=== PATIENT | male | born 1955 | race Caucasian/White ===

== ENCOUNTER → 2017-01-17 | Outpatient (CLI) | payer OTHER ==
[~2017-01-17] MED LIST: ASPI81TA21 PO; ATEN-173 PO; ATEN50TA PO; ATOR-22 PO; ATV2 PO; CALCTAB7 PO; CITA20TA9 PO; CLOP1TAB15 PO; LISI-461 PO; LORA-741 PO; LPT/40 PO; MULTTAB58 PO; OMEG10007 PO
[2017-01-17 12:30] LABS: CHOLESTEROL/HDL RATIO 3.3
== END | disposition home or self-care (01) ==
LOC: C.LABPBG 08:08
PROVIDERS: ATTEND Internal Medicine Cardiovascular Disease
DX: I25.10 Atherosclerotic heart disease of native coronary artery without angina pectoris (principal); I25.5 Ischemic cardiomyopathy; Z98.890 Other specified postprocedural states

== ENCOUNTER → 2017-02-15 | Outpatient (CLI) | payer OTHER ==
[2017-02-15 17:01] LABS: ALT/SGPT 52 U/L (12-78); AST/SGOT 29 U/L (15-37); BLOOD UREA NITROGEN 14 mg/dl (7-18); BUN/CREATININE RATIO 13.6 (10-20); CALCIUM 8.4 mg/dl (8.5-10.1); CARBON DIOXIDE 28 mmol/L (21-32); CHLORIDE 107 mmol/L (98-107); GLUCOSE 100 mg/dl (70-99); POTASSIUM 3.9 mmol/L (3.5-5.1); SODIUM 141 mmol/L (136-145)
[2017-02-15 17:04] LABS: ALB/GLOB RATIO 1.1 (0.9-2); ALKALINE PHOSPHATASE 76 U/L (45-117)
[2017-02-16 09:12] LABS: ESTIMATED AVERAGE GLUCOSE 126 mg/dl; HA1C FLAG Normal (Normal)
== END | disposition home or self-care (01) ==
LOC: C.LABPBG 12:01
PROVIDERS: ATTEND Neuromusculoskeletal Medicine & OMM
DX: I25.10 Atherosclerotic heart disease of native coronary artery without angina pectoris (principal)

== ENCOUNTER 2017-05-25 10:45 | Emergency (ER) | payer OTHER ==
[~2017-05-25] VITALS: Ht 175.3 cm; Wt 89.3 kg
[~2017-05-25 10:45] MED LIST changes: -ATEN-173 PO; -ATOR-22 PO; -CITA20TA9 PO; -LORA-741 PO
[2017-05-25 10:48] VITALS: TEMP 36.9; Ht 175.3 cm; Wt 89.3 kg
[2017-05-25 11:00] VITALS: O2SAT 98
[2017-05-25] MEDS ORDERED: ACETAMINOPHEN 500 MG TAB PO STA (11:09)
--- NOTE | 2017-05-25 11:22 | EMERGENCY ROOM VISIT NOTE ---
History Report prepared by Ivan: Irma Monte Under the Supervision of: Dr. Nikolas Delgado M.D. First contact with patient: 10:54 Chief Complaint: CHEST PAIN Stated Complaint: CHEST PAIN History of Present Illness The patient is a 61 year old white male with a past medical history of HLD, HTN , and CAD with PCI and BMS to LAD by Dr. Cho in 2011 who presents to the ED with a cc of intermittent right burning chest pain beginning at 7 am this morning. The patient is on Aspirin but is not on any blood thinners. Negative N /V, fevers, chills, cough, sweating, bad taste in black of throat, alleviating symptoms. He denies that symptoms are similar to when he had his heart attack. Pt notes that he fell yesterday but denies LOC from this fall. Source of History: patient Onset: 7 am this morning Position: chest Quality: burning Timing: intermittent Associated Symptoms: No fevers, No chills, No cough, No nausea, No vomiting Note: Pt denies sweating, bad taste in black of throat, or alleviating symptoms Review of Systems See HPI for pertinent positives and negatives. A total of ten systems were reviewed and were otherwise negative. Past Medical & Surgical Medical Problems: (1) CAD (coronary artery disease) (2) HLD (hyperlipidemia) (3) HTN (hypertension) Family History no pertinent family history stated. Social History Smoking Status: Former Smoker Alcohol Use: none Drug Use: none Marital Status: Current/Historical Medications Scheduled Aspirin Enteric Coated (Ecotrin Or Generic), 81 MG PO DAILY Atenolol (Tenormin), 25 MG PO DAILY Atorvastatin (Lipitor), 20 MG PO DAILY Citalopram Hydrobromide (Celexa), 20 MG PO DAILY Lisinopril (Zestril), 10 MG PO DAILY Multiple Vitamin (Multivitamin), 1 TABLET PO DAILY Scheduled PRN Lorazepam (Ativan), 0.5 MG PO BID PRN for Anxiety/Agitation Allergies Coded Allergies: No Known Allergies (Verified , 05/25/17) Physical Exam Vital Signs Date Time Temp Pulse Resp B/P (MAP) Pulse Ox O2 Delivery O2 Flow Rate FiO2 05/25/17 13:55 67 24 112/66 96 05/25/17 13:02 60 26 108/73 97 Room Air 05/25/17 12:00 59 21 114/69 96 Room Air 05/25/17 11:32 64 20 116/72 98 Room Air 05/25/17 11:02 78 05/25/17 11:00 98 Room Air 05/25/17 11:00 67 25 127/83 98 Room Air 05/25/17 11:00 98 Room Air 05/25/17 10:48 36.9 68 16 138/82 99 Room Air Physical Exam GENERAL: Awake, alert, well-appearing, NAD HENT: Normocephalic, atraumatic. EYES: Normal conjunctiva. Sclera non-icteric. NECK: Supple. No nuchal rigidity. FROM. RESPIRATORY: CTAB, no rhonchi, wheezing, crackles CARDIAC: RRR, no MRG ABDOMEN: Soft, NTND, BS+ MSK: No reproducible chest wall tenderness, no ecchymosis or crepitus, no reproducible chest wall pain with shoulder ROM, no LE edema, calor or erythema. NEURO: GCS 15, CN 2-12 intact, moves all 4s on command SKIN: No rash or jaundice noted. Medical Decision & Procedures ER Provider Diagnostic Interpretation: Radiology results as stated below per my review and radiologist interpretation: CHEST ONE VIEW PORTABLE FINDINGS: Cardiomediastinal and hilar silhouettes are within normal limits. No pneumothorax, pleural effusion or focal airspace consolidation. There is no overt pulmonary edema. The bones are grossly intact. IMPRESSION: No acute cardiopulmonary process. The above report was generated using voice recognition software. It may contain grammatical, syntax or spelling errors. Electronically signed by: George Umana M.D. Laboratory Results 05/25/17 11:15 Red Blood Count 4.68, Mean Corpuscular Volume 89.1, Mean Corpuscular Hemoglobin 30.3, Mean Corpuscular Hemoglobin Concent 34.1, Mean Platelet Volume 10.2, Neutrophils (%) (Auto) 58.7, Lymphocytes (%) (Auto) 29.8, Monocytes (%) (Auto) 8.7, Eosinophils (%) (Auto) 2.3, Basophils (%) (Auto) 0.3, Neutrophils # (Auto) 3.57, Lymphocytes # (Auto) 1.81, Monocytes # (Auto) 0.53, Eosinophils # (Auto) 0.14, Basophils # (Auto) 0.02 05/25/17 11:15 Test 05/25/17 11:15 05/25/17 13:06 White Blood Count 6.08 K/uL (4.8-10.8) Red Blood Count 4.68 M/uL (4.7-6.1) Hemoglobin 14.2 g/dL (14.0-18.0) Hematocrit 41.7 % (42-52) Mean Corpuscular Volume 89.1 fL (80-100) Mean Corpuscular Hemoglobin 30.3 pg (25-34) Mean Corpuscular Hemoglobin Concent 34.1 g/dl (32-36) Platelet Count 211 K/uL (130-400) Mean Platelet Volume 10.2 fL (7.4-10.4) Neutrophils (%) (Auto) 58.7 % Lymphocytes (%) (Auto) 29.8 % Monocytes (%) (Auto) 8.7 % Eosinophils (%) (Auto) 2.3 % Basophils (%) (Auto) 0.3 % Neutrophils # (Auto) 3.57 K/uL (1.4-6.5) Lymphocytes # (Auto) 1.81 K/uL (1.2-3.4) Monocytes # (Auto) 0.53 K/uL (0.11-0.59) Eosinophils # (Auto) 0.14 K/uL (0-0.5) Basophils # (Auto) 0.02 K/uL (0-0.2) RDW Standard Deviation 42.4 fL (36.4-46.3) RDW Coefficient of Variation 13.1 % (11.5-14.5) Immature Granulocyte % (Auto) 0.2 % Immature Granulocyte # (Auto) 0.01 K/uL (0.00-0.02) Prothrombin Time 11.1 SECONDS (9.0-12.0) Prothromb Time International Ratio 1.0 (0.9-1.1) Activated Partial Thromboplast Time 26.9 SECONDS (21.0-31.0) Partial Thromboplastin Ratio 1.0 Anion Gap 2.0 mmol/L (3-11) Est Creatinine Clear Calc Drug Dose 88.0 ml/min Estimated GFR () 98.3 Estimated GFR (Non- 84.9 BUN/Creatinine Ratio 15.0 (10-20) Calcium Level 9.2 mg/dl (8.5-10.1) Phosphorus Level 2.7 mg/dl (2.5-4.9) Magnesium Level 1.8 mg/dl (1.8-2.4) Bedside Troponin I < 0.030 ng/ml (0-0.045) Laboratory results reviewed by me Medications Administered Medications (Trade) Dose Ordered Sig/Pb Route Start Time Stop Time Status Last Admin Dose Admin Acetaminophen (Tylenol Tab) 1,000 mg NOW STAT PO 05/25/17 11:09 05/25/17 11:12 DC 05/25/17 11:31 1,000 MG ECG Indication: chest pain Rate (beats per minute): 67 Rhythm: normal sinus Findings: Q waves (Anterior in V1 and V2), other (normal intervals, right axis deviation, no other STS changes or TWI) ED Course 1058: The patient was evaluated in room C11B. A complete history and physical exam was performed. 1326: I discussed the pt's case with Dr. Tavares- Cardiology 1340: I reevaluated the patient. Discussed results and discharge instructions: He verbalized understanding and agreement. The patient is ready for discharge. Medical Decision The patient is a 61 year old white male with a past medical history of HLD, HTN , and CAD with PCI and BMS to LAD by Dr. Cho in 2011 who presents to the ED with a cc of intermittent right burning chest pain beginning at 7 am this morning. The patient is on Aspirin but is not on any blood thinners. Negative N /V, fevers, chills, cough, sweating, bad taste in black of throat, alleviating symptoms. Differential diagnosis: Etiologies such as cardiac ischemia, aortic dissection, pulmonary embolism, pneumonia, pneumothorax, musculoskeletal, infections, pericarditis, myocarditis , esophageal rupture, gastrointestinal, as well as others were entertained. Patient was seen and evaluated at the bedside. Patient does not appear to be in any acute distress. He denies any diaphoresis nausea or vomiting. Patient was working on his trailer yesterday. Patient was not sure if this was related. Patient's story does not sound cardiac related however the patient's pain is not reproducible and given the patient's prior history he underwent workup with labs EKG chest x-ray and troponin. Patient's labs fairly unremarkable. Patient had a negative chest x-ray. Patient's EKG did show Q waves anteriorly but no acute changes. Patient had 2 separate troponins which were negative and patient did not have any acute chest pain and episodes of diaphoresis nausea or vomiting. Patient less likely PE as he is WELLS DVT and PE negative. I spoke with the patient's primary sociology faculty member and explained the situation. Mat Machine Tender agreed he may follow up as an outpatient. Patient does have an outpatient cardiology appointment in July. Patient was given strict follow-up, discharge, and return precautions. Patient agreed with plan of care patient was safely discharged home. Medication Reconcilliation Current Medication List: was personally reviewed by me Blood Pressure Screening Patient's blood pressure: Normal blood pressure Consults Time Called: 1325 Consulting Physician: Dr. Tavares-Cardiology Returned Call: [phone] Discussed the patient's case. Impression Primary Impression: Chest wall pain Additional Impression: History of coronary artery stent placement Scribe Attestation The scribe's documentation has been prepared under my direction and personally reviewed by me in its entirety. I confirm that the note above accurately reflects all work, treatment, procedures, and medical decision making performed by me. Departure Information Dispostion Home / Self-Care Referrals No Doctor, Assigned (PCP) Bart Tavares M.D. Forms Call Back Authorization, HOME CARE DOCUMENTATION FORM, IMPORTANT VISIT INFORMATION Patient Instructions Chest Pain - [facility], [facility] Additional Instructions Please return to the emergency department if you have worsening or recurrent symptoms not amenable to at-home treatment. Please call for a follow-up appointment with her primary care physician. Please take your medications as prescribed. If you have other concerns and/or complaints please feel free to also call your primary care physician's office or return the ED for further evaluation, management, and treatment. Problem Qualifiers
[2017-05-25] MEDS ORDERED: LORA-741 PO (11:28)
[2017-05-25] MEDS ORDERED: ATOR-22 PO (11:28)
[2017-05-25] MEDS ORDERED: ATEN-173 PO (11:28)
--- NOTE | 2017-05-25 11:28 | DIAGNOSTIC IMAGING REPORT ---
CHEST ONE VIEW PORTABLE HISTORY: 61 years-old Male R sided CP acute atypical right-sided chest pain. COMPARISON: Chest radiographs 06/18/2012 TECHNIQUE: Portable upright AP view of the chest FINDINGS: Cardiomediastinal and hilar silhouettes are within normal limits. No pneumothorax, pleural effusion or focal airspace consolidation. There is no overt pulmonary edema. The bones are grossly intact. IMPRESSION: No acute cardiopulmonary process. The above report was generated using voice recognition software. It may contain grammatical, syntax or spelling errors. Electronically signed by: George Umana M.D. 05/25/2017 11:27 AM Dictated Date/Time: 05/25/2017 11:26 AM
[2017-05-25] MEDS ORDERED: CITA20TA9 PO (11:29)
[2017-05-25 11:34] LABS: BASO % 0.3 %; BASO ABS # 0.02 K/uL (0-0.2); COMPLETE YES; EOS % 2.3 %; HEMATOCRIT 41.7 % (42-52); IG% 0.2 %; LYMPH % 29.8 %; LYMPH ABS # 1.81 K/uL (1.2-3.4); MEAN CELL VOLUME 89.1 fL (80-100); MEAN CORPUSCULAR HEMOGLOBIN 30.3 pg (25-34); MEAN CORPUSCULAR HGB CONC 34.1 g/dl (32-36); MEAN PLATELET VOLUME 10.2 fL (7.4-10.4); MONO % 8.7 %; NEUT % 58.7 %; PLATELET COUNT 211 K/uL (130-400); RED BLOOD COUNT 4.68 M/uL (4.7-6.1); WHITE BLOOD COUNT 6.08 K/uL (4.8-10.8)
[2017-05-25 11:49] LABS: CALCIUM 9.2 mg/dl (8.5-10.1); CREATININE 0.95 mg/dl (0.60-1.40); MAGNESIUM 1.8 mg/dl (1.8-2.4); PHOSPHORUS 2.7 mg/dl (2.5-4.9); POTASSIUM 3.9 mmol/L (3.5-5.1)
[2017-05-25 12:09] LABS: PROTHROMBIN TIME (PATIENT) 11.1 SECONDS (9.0-12.0)
[2017-05-25 13:55] VITALS: BP 112/66; PULSE 67; O2SAT 96
== END 2017-05-25 13:55 | disposition home or self-care (01) ==
LOC: C.EDB 10:47 → C.EDC 13:55
DX: R07.89 Other chest pain (principal); Z98.61 Coronary angioplasty status; I25.10 Atherosclerotic heart disease of native coronary artery without angina pectoris; I10 Essential (primary) hypertension; E78.5 Hyperlipidemia, unspecified; Z87.891 Personal history of nicotine dependence; Z79.82 Long term (current) use of aspirin; Z79.899 Other long term (current) drug therapy

== ENCOUNTER → 2018-01-20 | Outpatient (CLI) | payer OTHER ==
[~2018-01-20] MED LIST changes: +ASPI-319 PO; -ASPI81TA21 PO; +ATEN-173 PO; -ATEN50TA PO; +ATOR-22 PO; -ATV2 PO; -CALCTAB7 PO; +CITA20TA9 PO; -CLOP1TAB15 PO; +LORA-741 PO; -LPT/40 PO; -OMEG10007 PO
[2018-01-20 13:03] LABS: BASO % 0.4 %; BASO ABS # 0.03 K/uL (0-0.2); EOS ABS # 0.14 K/uL (0-0.5); HEMATOCRIT 41.7 % (42-52); HEMOGLOBIN 14.4 g/dL (14.0-18.0); IG# 0.02 K/uL (0.00-0.02); LYMPH % 33.3 %; LYMPH ABS # 2.29 K/uL (1.2-3.4); MEAN CELL VOLUME 89.5 fL (80-100); MEAN CORPUSCULAR HEMOGLOBIN 30.9 pg (25-34); MEAN CORPUSCULAR HGB CONC 34.5 g/dl (32-36); MEAN PLATELET VOLUME 10.4 fL (7.4-10.4); MONO % 6.5 %; MONO ABS # 0.45 K/uL (0.11-0.59); NEUT % 57.5 %; NEUT ABS # 3.95 K/uL (1.4-6.5); PLATELET COUNT 232 K/uL (130-400); RED CELL DISTRIBUTION WIDTH CV 13.5 % (11.5-14.5); RED CELL DISTRIBUTION WIDTH SD 44.1 fL (36.4-46.3); WHITE BLOOD COUNT 6.88 K/uL (4.8-10.8)
[2018-01-20 13:39] LABS: HEMOGLOBIN A1C 5.8 % (4.5-5.6)
[2018-01-20 14:26] LABS: ALBUMIN 3.8 gm/dl (3.4-5.0); ALT/SGPT 63 U/L (12-78); AST/SGOT 34 U/L (15-37); BLOOD UREA NITROGEN 13 mg/dl (7-18); CALCIUM 8.5 mg/dl (8.5-10.1); CARBON DIOXIDE 25 mmol/L (21-32); CREATININE 1.04 mg/dl (0.60-1.40); GLUCOSE 110 mg/dl (70-99); POTASSIUM 4.2 mmol/L (3.5-5.1); SODIUM 138 mmol/L (136-145)
[2018-01-20 14:29] LABS: ALKALINE PHOSPHATASE 71 U/L (45-117); CHOLESTEROL 89 mg/dl (0-200); LDL CHOLESTEROL CALCULATED 27 mg/dl; TOTAL PROTEIN 7.7 gm/dl (6.4-8.2)
== END | disposition home or self-care (01) ==
LOC: C.LABPBG 08:06
PROVIDERS: ATTEND Internal Medicine Cardiovascular Disease
DX: Z00.00 Encounter for general adult medical examination without abnormal findings (principal); I25.10 Atherosclerotic heart disease of native coronary artery without angina pectoris; E78.5 Hyperlipidemia, unspecified; R73.09 Other abnormal glucose; I10 Essential (primary) hypertension